=== PATIENT | male | born 1975 | race American Indian/Alaskan Native ===

== ENCOUNTER 2021-04-20 08:00 | Outpatient (CLI) | payer OTHER | END 2021-04-20 08:30 | disposition home or self-care (01) | LOC: PPH VACUNA 08:00 | DX: Z23 Encounter for immunization (principal) ==

== ENCOUNTER 2021-05-11 10:54 | Outpatient (CLI) | payer OTHER | END 2021-05-11 11:03 | disposition home or self-care (01) | LOC: PPH VACUNA 10:54 | PROVIDERS: ATTEND Emergency Medicine Pediatric Emergency Medicine | DX: Z23 Encounter for immunization (principal) ==

== ENCOUNTER 2021-07-10 12:46 | Outpatient (CLI) | payer OTHER | END 2021-07-10 12:47 | disposition home or self-care (01) | LOC: RAD 12:46 | PROVIDERS: ATTEND General Practice | DX: I10 Essential (primary) hypertension (principal) ==